=== PATIENT | female | born 1985 | race Caucasian/White ===

== ENCOUNTER → 2017-06-24 | Outpatient (CLI) | payer BC ==
--- NOTE | 2017-06-25 05:41 | REP ---
RIGHT ANKLE SERIES, COMPLETE: 06/24/2017. Clinical history: Twisting injury to the ankle. Comparison: 11/15/2001. Four views show soft tissue swelling about the anterolateral aspect of the ankle. No fracture or avulsion about the distal fibula. The mortise joint preserved. Distal tibia also intact without fracture or avulsion. No talar dome osteochondral defect. No heel spurs or subtalar joint abnormality. Visualized tarsal bones and articulations intact. Impression. 1. Prominent soft tissue swelling anterolateral aspect of the ankle without visible or displaced fracture, avulsion, disruption of the mortise joint or other acute finding. Signed by Devang Mann MD 06/25/2017 11:13 A
== END ==
LOC: M WUC 18:11
PROVIDERS: ATTEND Physician Assistant
DX: M25.571 Pain in right ankle and joints of right foot (principal); M79.89 Other specified soft tissue disorders

== ENCOUNTER → 2018-06-16 | Outpatient (REF) | payer BC ==
[2018-06-21 08:06] LABS: HPV HYBRID CAPTURE II Positive (Negative)
== END ==
LOC: M SFHCWAGY 15:10
DX: Z12.4 Encounter for screening for malignant neoplasm of cervix (principal)
CPT/HCPCS: G0123

== ENCOUNTER → 2018-07-21 | Outpatient (REF) | payer BC | LOC: M SFHCWAGY 14:31 | DX: R87.613 High grade squamous intraepithelial lesion on cytologic smear of cervix (HGSIL) (principal); R87.810 Cervical high risk human papillomavirus (HPV) DNA test positive | CPT/HCPCS: 88304 ==

== ENCOUNTER → 2019-07-01 | Outpatient (REF) | payer BC ==
[2019-07-01 19:27] LABS: CHLAMYDIA DNA AMPLIFICATION NEGATIVE (NEGATIVE); GC DNA AMPLIFICATION NEGATIVE (NEGATIVE)
[2019-07-04 00:06] LABS: HPV HYBRID CAPTURE II Positive (Negative)
== END ==
LOC: M SFHCWAGY 15:49
PROVIDERS: ATTEND Nurse Practitioner Family
DX: Z12.4 Encounter for screening for malignant neoplasm of cervix (principal); R87.613 High grade squamous intraepithelial lesion on cytologic smear of cervix (HGSIL)
CPT/HCPCS: 87491; 87591; 87624; G0123

== ENCOUNTER → 2019-08-31 | Outpatient (REF) | payer BC | LOC: M SFHCWAGY 15:40 | PROVIDERS: ATTEND Nurse Practitioner Women's Health | DX: R87.613 High grade squamous intraepithelial lesion on cytologic smear of cervix (HGSIL) (principal); N87.1 Moderate cervical dysplasia ==

== ENCOUNTER → 2019-12-15 | Outpatient (REF) | payer BC | LOC: M SFHCWAGY 09:40 | PROVIDERS: ATTEND Specialist | DX: R87.613 High grade squamous intraepithelial lesion on cytologic smear of cervix (HGSIL) (principal) ==

== ENCOUNTER → 2020-01-14 | Outpatient (REF) | payer BC | LOC: M LAB REF 09:26 | PROVIDERS: ATTEND Dermatology | DX: D49.2 Neoplasm of unspecified behavior of bone, soft tissue, and skin (principal) ==

== ENCOUNTER 2020-07-11 14:24 | Emergency (ER) | payer BC ==
[~2020-07-11] VITALS: Ht 154.9 cm; Wt 66.9 kg
[2020-07-11] MEDS ORDERED: LIDOCAINE 1% MDV 20ML VIAL SC ONE (16:30)
--- NOTE | 2020-07-11 17:45 | REPVR ---
PROCEDURE INFORMATION: Exam: XR Right Toe(s) Exam date and time: 07/11/2020 5:37 PM Age: 35 years old Clinical indication: Injury or trauma; Injury history: Laceration to big toe; Initial encounter; Toes; Right great; Foreign body involvement not specified; Additional info: Lac to big toe, can't move TECHNIQUE: Imaging protocol: XR Right toes. Views: Minimum 2 views. COMPARISON: CR ANKLE COMPLETE RIGHT 06/24/2017 6:25 PM FINDINGS: Bones/joints: Soft tissue irregularity of the dorsal aspect of the great toe at the proximal phalanx level. No identifiable foreign body. Normal osseous alignment. No acute fracture or concerning osseous lesion. Incidental bone island within the distal phalanx of the great toe, no significance. Joint spaces are maintained. Soft tissues: See "Bones/joints" finding. IMPRESSION: 1. Soft tissue laceration suspected over the dorsal aspect of the great toe at the proximal phalanx level 2. No identifiable foreign body or osseous abnormality. Electronically signed by: Reggie Tomas On 07/11/2020 17:44:43 PM
[2020-07-11] MEDS ORDERED: NEOSPORIN OINT 0.9 GM PKT As Ordered ONE (17:52)
[2020-07-11 17:58] VITALS: BP 130/88
[2020-07-11] MEDS ORDERED: NEOSPORIN OINT 0.9 GM PKT TOP ONE (18:00)
== END 2020-07-11 18:00 | disposition home or self-care (01) ==
LOC: M ED 14:24
DX: S91.111A Laceration without foreign body of right great toe without damage to nail, initial encounter (principal); W26.0XXA Contact with knife, initial encounter; Y92.009 Unspecified place in unspecified non-institutional (private) residence as the place of occurrence of the external cause; Y93.G1 Activity, food preparation and clean up; Y99.9 Unspecified external cause status

== ENCOUNTER → 2020-08-02 | Outpatient (REF) | payer BC | LOC: M SFHCWAGY 10:25 | PROVIDERS: ATTEND Nurse Practitioner Family | DX: Z12.4 Encounter for screening for malignant neoplasm of cervix (principal); R87.610 Atypical squamous cells of undetermined significance on cytologic smear of cervix (ASC-US) | CPT/HCPCS: 87624; G0123 ==

== ENCOUNTER → 2021-02-09 | Outpatient (REF) | payer BC | LOC: M SFHCWAGY 17:21 | PROVIDERS: ATTEND Nurse Practitioner Women's Health | DX: Z12.4 Encounter for screening for malignant neoplasm of cervix (principal); Z87.42 Personal history of other diseases of the female genital tract; Z98.890 Other specified postprocedural states | CPT/HCPCS: 87624; G0123 ==

== ENCOUNTER → 2021-03-03 | Outpatient (REF) | payer BC | LOC: M LAB REF 11:18 | PROVIDERS: ATTEND Physician Assistant | DX: J02.9 Acute pharyngitis, unspecified (principal) ==

== ENCOUNTER → 2021-08-10 | Outpatient (REF) | payer BC | LOC: M SFHCWAGY 10:46 | PROVIDERS: ATTEND Nurse Practitioner Women's Health | DX: Z12.4 Encounter for screening for malignant neoplasm of cervix (principal); Z77.9 Other contact with and (suspected) exposures hazardous to health ==

== ENCOUNTER 2021-11-07 17:52 | Emergency (ER) | payer BC ==
[~2021-11-07] VITALS: Ht 154.9 cm; Wt 65.0 kg
[2021-11-07 17:55] VITALS: BP 136/88
[2021-11-07] MEDS ORDERED: TRAZ-186 PO (18:27)
[2021-11-07] MEDS ORDERED: CITA20TA6 PO (18:27)
[2021-11-07 19:27] LABS: BASO % 0.3 % (0.0-1.0); EOS # 0.1 10^3/uL (0.0-0.5); EOS % 0.4 % (0.0-3.0); HEMATOCRIT 41.5 % (36.0-47.0); HEMOGLOBIN 13.9 g/dl (12.0-15.5); LYMPH # 2.9 10^3/uL (1.5-5.0); LYMPH % 25.6 % (24.0-44.0); MEAN CORPUSCULAR HEMOGLOBIN 32.3 pg (27.0-33.0); MEAN CORPUSCULAR HGB CONC 33.5 g/dl (32.0-36.5); MEAN CORPUSCULAR VOLUME 96.5 fl (80.0-96.0); MONO # 0.8 10^3/uL (0.0-0.8); MONO % 7.4 % (2.0-8.0); NEUTROPHILS # 7.5 10^3/uL (1.5-8.5); PLATELET COUNT, AUTOMATED 285 10^3/uL (150-450); WHITE BLOOD COUNT 11.3 10^3/uL (4.0-10.0)
[2021-11-07 20:01] LABS: ALBUMIN 4.1 GM/DL (3.2-5.2); ALT/SGPT 22 U/L (12-78); BILIRUBIN,DIRECT 0.1 MG/DL (0.0-0.2); BILIRUBIN,TOTAL 0.5 MG/DL (0.2-1.0); BLOOD UREA NITROGEN 10 MG/DL (7-18); CALCIUM LEVEL 9.7 MG/DL (8.5-10.1); CARBON DIOXIDE LEVEL 25 MEQ/L (21-32); CHLORIDE LEVEL 106 MEQ/L (98-107); CREATININE FOR GFR 0.68 MG/DL (0.55-1.30); GLOMERULAR FILTRATION RATE > 60.0 (>60); GLUCOSE, FASTING 89 MG/DL (70-100); HCG, SERUM QUANTITATIVE < 1.0 MIU/ML; LIPASE 78 U/L (73-393); POTASSIUM SERUM 4.6 MEQ/L (3.5-5.1); SODIUM LEVEL 138 MEQ/L (136-145); TOTAL PROTEIN 7.5 GM/DL (6.4-8.2)
== END 2021-11-08 04:59 | disposition left against medical advice (07) ==
LOC: M ED 17:52
DX: Z53.21 Procedure and treatment not carried out due to patient leaving prior to being seen by health care provider (principal)

== ENCOUNTER → 2021-11-09 | Outpatient (CLI) | payer BC ==
[~2021-11-09] MED LIST: CITA20TA6 PO; GASTROGRAFIN SOLUTION 30ML (Q9963) As Ordered ONE; ISOVUE-370 76% 100ML VIAL As Ordered ONE; TRAZ-186 PO
== END ==
LOC: M RAD 10:53
PROVIDERS: ATTEND Nurse Practitioner Adult Health
DX: R10.10 Upper abdominal pain, unspecified (principal)

== ENCOUNTER → 2022-08-02 | Outpatient (CLI) | payer BC ==
[~2022-08-02] MED LIST changes: -GASTROGRAFIN SOLUTION 30ML (Q9963) As Ordered ONE; -ISOVUE-370 76% 100ML VIAL As Ordered ONE
== END ==
LOC: M SOG 08:01
PROVIDERS: ATTEND Orthopaedic Surgery
DX: M25.512 Pain in left shoulder (principal)

== ENCOUNTER → 2022-08-31 | Outpatient (CLI) | payer BC | LOC: M PLAIMG 13:39 | PROVIDERS: ATTEND Orthopaedic Surgery | DX: M54.12 Radiculopathy, cervical region (principal) ==

== ENCOUNTER → 2022-09-06 | Outpatient (REF) | payer BC | LOC: M PLALAB 09:19 | PROVIDERS: ATTEND Advanced Practice Midwife | DX: Z98.890 Other specified postprocedural states (principal); Z12.4 Encounter for screening for malignant neoplasm of cervix | CPT/HCPCS: 87624; G0123 ==

== ENCOUNTER → 2022-09-06 | Outpatient (CLI) | payer BC ==
[2022-09-06 11:10] LABS: HEMOGLOBIN 13.9 g/dl (12.0-15.5); MEAN CORPUSCULAR HEMOGLOBIN 32.6 pg (27.0-33.0); MEAN CORPUSCULAR HGB CONC 32.3 g/dl (32.0-36.5); MEAN CORPUSCULAR VOLUME 100.9 fl (80.0-96.0); PLATELET COUNT, AUTOMATED 269 10^3/uL (150-450); RED BLOOD COUNT 4.26 10^6/uL (4.00-5.40); WHITE BLOOD COUNT 8.4 10^3/uL (4.0-10.0)
[2022-09-06 11:49] LABS: FREE T4 0.9 NG/DL (0.76-1.46); THYROID STIMULATING HORMONE 3.64 uIU/ML (0.358-3.740)
== END ==
LOC: M PLALAB 08:56
PROVIDERS: ATTEND Advanced Practice Midwife
DX: N92.0 Excessive and frequent menstruation with regular cycle (principal)

== ENCOUNTER → 2022-09-14 | Outpatient (CLI) | payer BC | LOC: M WHC 07:38 | PROVIDERS: ATTEND Advanced Practice Midwife | DX: N92.0 Excessive and frequent menstruation with regular cycle (principal) ==

== ENCOUNTER → 2023-01-07 | Outpatient (CLI) | payer BC ==
[~2023-01-07] MED LIST changes: +ALBU8.5H INH; +CITA40TA7 PO; +COLA100C5 PO; +HYDR-3715 PO; +IBUP80TA PO; +TRAZ-257 PO
== END ==
LOC: M LABSMTC 07:33
PROVIDERS: ATTEND Anesthesiology
DX: Z01.812 Encounter for preprocedural laboratory examination (principal)

== ENCOUNTER 2023-01-09 06:13 | Observation (INO) | payer BC ==
[~2023-01-09] VITALS: Ht 154.9 cm; Wt 66.2 kg
[~2023-01-09 06:13] MED LIST changes: -COLA100C5 PO; -HYDR-3715 PO; -IBUP80TA PO; +ceFAZolin SOD 2 GM in IV 1 EA IV ONE
[2023-01-09] MEDS ORDERED: LR 1,000 ML IV SCH ×3 (06:45→11:30)
[2023-01-09 06:49] LABS: HEMATOCRIT 41.7 % (36.0-47.0); MEAN CORPUSCULAR HEMOGLOBIN 33.2 pg (27.0-33.0); MEAN CORPUSCULAR HGB CONC 33.6 g/dl (32.0-36.5); MEAN CORPUSCULAR VOLUME 98.8 fl (80.0-96.0); PLATELET COUNT, AUTOMATED 272 10^3/uL (150-450); RED BLOOD COUNT 4.22 10^6/uL (4.00-5.40); WHITE BLOOD COUNT 7.7 10^3/uL (4.0-10.0)
[2023-01-09] MEDS ORDERED: BUPIVACAINE HCL 0.25% 30ML VIAL As Ordered ONE (07:13)
[2023-01-09] MEDS ORDERED: HYDROmorphone HCL 2MG/ML 1ML VIAL As Ordered ONE (07:13)
[2023-01-09] MEDS ORDERED: fentaNYL 100 MCG/2 ML INJECTION As Ordered ONE (07:13)
[2023-01-09] MEDS ORDERED: METHYLENE BLUE 0.5% (5MG/ML) 10 ML AMP (PROVAYBLUE) As Ordered ONE (07:13)
[2023-01-09] MEDS ORDERED: MIDAZOLAM INJ 2MG/2ML VIAL As Ordered ONE (07:13)
[2023-01-09] MEDS ORDERED: LIDOCAINE 2% 100MG/5ML SDV (FOR ANES.) As Ordered ONE (07:14)
[2023-01-09] MEDS ORDERED: ROCURONIUM BROMIDE 50MG/5ML VIAL As Ordered ONE (07:14)
[2023-01-09] MEDS ORDERED: ONDANSETRON 4MG 2ML VIAL As Ordered ONE (07:14)
[2023-01-09] MEDS ORDERED: propofoL 200 MG/20 ML VIAL As Ordered ONE ×2 (07:14→08:57)
[2023-01-09] MEDS ORDERED: ACETAMINOPHEN 1000MG 100ML IV BAG As Ordered ONE (07:51)
[2023-01-09] MEDS ORDERED: SUGAMMADEX SODIUM 500 MG/5 ML VIAL (BRIDION) As Ordered ONE (07:58)
[2023-01-09] MEDS ORDERED: ePHEDrine SULFATE 25 MG/5 ML(5MG/ML) SYRINGE As Ordered ONE (07:58)
[2023-01-09] MEDS ORDERED: KETOROLAC 60MG 2ML VIAL As Ordered ONE (08:00)
[2023-01-09] MEDS ORDERED: GLYCOPYRROLATE INJ 0.2 MG/ML 2 ML VIAL As Ordered ONE (08:17)
[2023-01-09] MEDS ORDERED: LABETALOL 100MG/20ML VIAL As Ordered ONE (08:42)
[2023-01-09] MEDS ORDERED: PROMETHAZINE 25MG/ML 1ML VIAL IV PRN (09:20)
[2023-01-09] MEDS ORDERED: fentaNYL 100 MCG/2 ML INJECTION IV PRN (09:30)
[2023-01-09] MEDS ORDERED: HYDROMORPHONE HCL 0.5 MG/ 0.5 ML SYRINGE IV PRN (09:30)
[2023-01-09] MEDS ORDERED: ONDANSETRON 4MG 2ML VIAL IV PRN (09:30)
[2023-01-09] MEDS ORDERED: NORCO, ANEXSIA 5/325MG TABLET (HYDROcodone/ACETAMINOPHEN) PO PRN ×2 (09:45)
[2023-01-09] MEDS ORDERED: MORPHINE 2 MG/ML 1ML VIAL IV PRN (09:45)
[2023-01-09 10:30] VITALS: BP 116/66
[2023-01-09 11:00] VITALS: BP 101/54
[2023-01-09 11:30] VITALS: BP 111/62
[2023-01-09 12:30] VITALS: BP 110/60
[2023-01-09 13:30] VITALS: BP 112/57
[2023-01-09 14:00] VITALS: BP 116/62
[2023-01-09] MEDS ORDERED: KETOROLAC 30 MG/ML 1ML VIAL IV SCH (15:00)
[2023-01-09] MEDS ORDERED: IBUP80TA PO (16:13)
[2023-01-09] MEDS ORDERED: HYDR-3715 PO (16:13)
[2023-01-09] MEDS ORDERED: COLA100C5 PO (16:13)
[2023-01-09] MEDS ORDERED: DOCUSATE SODIUM 100MG CAPSULE PO SCH (21:00)
[2023-01-10] MEDS ORDERED: IBUPROFEN 800 MG TAB PO SCH (11:00)
== END 2023-01-09 16:40 | disposition home or self-care (01) ==
LOC: M SDC 06:13 → M MS5PR 06:14 → M OBS 10:30
PROVIDERS: ADMIT Obstetrics & Gynecology; ATTEND Obstetrics & Gynecology
DX: N93.9 Abnormal uterine and vaginal bleeding, unspecified (principal); D25.9 Leiomyoma of uterus, unspecified; K57.92 Diverticulitis of intestine, part unspecified, without perforation or abscess without bleeding; Z91.013 Allergy to seafood; Z79.899 Other long term (current) drug therapy; Z88.5 Allergy status to narcotic agent
CPT/HCPCS: 36415; 58571; 81025; 85027; 86850; 86900; 86901; 88307; 96361; 96374; J0131; J0690; J1100; J1170; J1885; J2250; J2405; J3010; Q9968; S0020; S2900

== ENCOUNTER 2023-05-03 06:00 | Day surgery (SDC) | payer BC ==
[~2023-05-03] VITALS: Ht 154.9 cm; Wt 66.9 kg
[~2023-05-03 06:00] MED LIST changes: +COLA100C5 PO; +HYDR-3715 PO; +IBUP80TA PO; +LEVOTAB10 PO; +LR 1,000 ML IV SCH
[2023-05-03 06:45] LABS: HEMOGLOBIN 13.8 g/dl (12.0-15.5); MEAN CORPUSCULAR HEMOGLOBIN 32.9 pg (27.0-33.0); MEAN CORPUSCULAR HGB CONC 33.7 g/dl (32.0-36.5); MEAN CORPUSCULAR VOLUME 97.9 fl (80.0-96.0); PLATELET COUNT, AUTOMATED 233 10^3/uL (150-450); RED BLOOD COUNT 4.19 10^6/uL (4.00-5.40); WHITE BLOOD COUNT 6.9 10^3/uL (4.0-10.0)
[2023-05-03] MEDS ORDERED: LR 1,000 ML IV SCH (06:55)
[2023-05-03] MEDS ORDERED: propofoL 200 MG/20 ML VIAL As Ordered ONE (07:17)
[2023-05-03] MEDS ORDERED: LIDOCAINE 2% 100MG/5ML SDV (FOR ANES.) As Ordered ONE (07:17)
[2023-05-03] MEDS ORDERED: fentaNYL 100 MCG/2 ML INJECTION As Ordered ONE (07:17)
[2023-05-03] MEDS ORDERED: ROCURONIUM BROMIDE 50MG/5ML VIAL As Ordered ONE (07:17)
[2023-05-03] MEDS ORDERED: MIDAZOLAM INJ 2MG/2ML VIAL As Ordered ONE (07:17)
[2023-05-03] MEDS ORDERED: METOCLOPRAMIDE INJ 10MG/2ML VIAL As Ordered ONE (07:53)
[2023-05-03] MEDS ORDERED: ONDANSETRON 4MG 2ML VIAL As Ordered ONE (07:53)
[2023-05-03] MEDS ORDERED: ACETAMINOPHEN 1000MG 100ML IV BAG As Ordered ONE (07:54)
[2023-05-03] MEDS ORDERED: fentaNYL 100 MCG/2 ML INJECTION IV PRN (08:25)
[2023-05-03] MEDS ORDERED: ONDANSETRON 4MG 2ML VIAL IV PRN (08:25)
[2023-05-03] MEDS ORDERED: MORPHINE 2 MG/ML 1ML VIAL IV PRN (08:25)
[2023-05-03] MEDS ORDERED: OXYC1TAB23 PO (08:52)
[2023-05-03] MEDS ORDERED: IBUP80TA PO (08:53)
[2023-05-03] MEDS ORDERED: COLA100C5 PO (08:54)
[2023-05-03 09:25] VITALS: BP 128/77; TEMP 97.7; O2SAT 96
== END 2023-05-03 09:37 | disposition home or self-care (01) ==
LOC: M SDC 06:00
PROVIDERS: ATTEND Obstetrics & Gynecology
DX: T81.31XA Disruption of external operation (surgical) wound, not elsewhere classified, initial encounter (principal); J30.2 Other seasonal allergic rhinitis; K57.92 Diverticulitis of intestine, part unspecified, without perforation or abscess without bleeding; Z79.899 Other long term (current) drug therapy; Z91.013 Allergy to seafood; Z88.5 Allergy status to narcotic agent; Z88.8 Allergy status to other drugs, medicaments and biological substances
CPT/HCPCS: 36415; 57200; 85027; 86850; 86900; 86901; J0131; J0690; J2250; J2405; J2765; J3010

== ENCOUNTER → 2023-11-07 | Outpatient (REF) | payer OTHER ==
[~2023-11-07] MED LIST changes: -LR 1,000 ML IV SCH; +OXYC1TAB23 PO; -ceFAZolin SOD 2 GM in IV 1 EA IV ONE
== END ==
LOC: M PLALAB 08:53
PROVIDERS: ATTEND Advanced Practice Midwife
DX: Z01.419 Encounter for gynecological examination (general) (routine) without abnormal findings (principal); Z12.72 Encounter for screening for malignant neoplasm of vagina; Z87.410 Personal history of cervical dysplasia

== ENCOUNTER → 2024-08-17 | Outpatient (REF) | payer OTHER ==
[2024-08-17 15:29] LABS: HEMOGLOBIN A1c 5.3 % (4.0-6.0)
[2024-08-17 15:40] LABS: THYROID STIMULATING HORMONE 4.715 uIU/ML (0.55-4.78)
[2024-08-17 15:42] LABS: ALBUMIN 3.8 G/DL (3.2-5.2); ALKALINE PHOSPHATASE 65 U/L (46-116); ALT/SGPT 16 U/L (7.0-40); AST/SGOT 8 U/L (<34); BILIRUBIN,TOTAL 0.5 MG/DL (0.3-1.2); BLOOD UREA NITROGEN 13 MG/DL (9-23); CARBON DIOXIDE LEVEL 26 MMOL/L (20-31); CHLORIDE LEVEL 107 MMOL/L (98-107); CHOLESTEROL LEVEL 198 MG/DL (<200); CHOLESTEROL RISK RATIO 3.42 (<5); CREATININE FOR GFR 0.75 MG/DL (0.55-1.30); FREE T4 1.19 NG/DL (0.89-1.76); GLOMERULAR FILTRATION RATE > 60.0 (>60); GLUCOSE, FASTING 106 MG/DL (60-100); HDL CHOLESTEROL 57.8 MG/DL (>40); LDL CHOLESTEROL 107.6 MG/DL (<100); NON-HDL-C 140.2 MG/DL; POTASSIUM SERUM 4.5 MMOL/L (3.5-5.1); SODIUM LEVEL 138 MMOL/L (136-145); TOTAL PROTEIN 6.6 G/DL (5.7-8.2); TRIGLYCERIDES LEVEL 163 MG/DL (<150)
== END ==
LOC: M SFHCCLAY 09:58
PROVIDERS: ATTEND Nurse Practitioner Family
DX: Z00.00 Encounter for general adult medical examination without abnormal findings (principal); J30.2 Other seasonal allergic rhinitis; F41.9 Anxiety disorder, unspecified; F51.01 Primary insomnia; Z83.3 Family history of diabetes mellitus; Z83.49 Family history of other endocrine, nutritional and metabolic diseases